=== PATIENT | female | born 1945 | race Caucasian/White ===

== ENCOUNTER 2018-10-09 18:32 | Emergency (ER) | payer MEDICARE ==
[~2018-10-09] VITALS: Ht 162.6 cm; Wt 113.4 kg
[2018-10-09 21:20] VITALS: BP 190/94
[2018-10-09] MEDS ORDERED: HYDR-3164 PO (21:22)
--- NOTE | 2018-10-09 21:23 | PHYS DOC ---
Past Medical History Past Medical History: No Pertinent History (VERÓNICA PAINTINGJENNIFER Yost APRN) Past Surgical History: Other Additional Past Surgical Histo: right leg (GARIMABLAKECARLOS Yost APRN) Alcohol Use: Occasionally Drug Use: None (GARIMABLAKECARLOS Yost APRN) Adult General Chief Complaint Chief Complaint: KNEE INJURY [facility] HPI Patient is a 73 year old female who presents with increasing pain in hr knee. She states that it has now become painful to walk on the extremity. She denies known injury. (VERÓNICA PAINTINGJENNIFER Yost APRN) Review of Systems Review of Systems Constitutional: Denies fever or chills [] Eyes: Denies change in visual acuity, redness, or eye pain [] HENT: Denies nasal congestion or sore throat [] Respiratory: Denies cough or shortness of breath [] Cardiovascular: No additional information not addressed in HPI [] GI: Denies abdominal pain, nausea, vomiting, bloody stools or diarrhea [] : Denies dysuria or hematuria [] Musculoskeletal: See HPI Integument: Denies rash or skin lesions [] Neurologic: Denies headache, focal weakness or sensory changes [] Endocrine: Denies polyuria or polydipsia [] All other systems were reviewed and found to be within normal limits, except as documented in this note. (VERÓNICA PAINTINGJENNIFER Yost APRN) Allergies Allergies Allergies Coded Allergies Type Severity Reaction Last Updated Verified No Known Drug Allergies 08/16/15 No (DEMAR NGUYEN MD) Physical Exam Physical Exam Constitutional: Well developed, well nourished, no acute distress, non-toxic appearance. [] HENT: Normocephalic, atraumatic, bilateral external ears normal, oropharynx moist, no oral exudates, nose normal. [] Eyes: PERRLA, EOMI, conjunctiva normal, no discharge. [] Neck: Normal range of motion, no tenderness, supple, no stridor. [] Cardiovascular:Heart rate regular rhythm, no murmur [] Lungs & Thorax: Bilateral breath sounds clear to auscultation [] Abdomen: Bowel sounds normal, soft, no tenderness, no masses, no pulsatile masses. [] Skin: Warm, dry, no erythema, no rash. [] Back: No tenderness, no CVA tenderness. [] Extremities: left knee tenderness, no cyanosis, no clubbing, ROM decreased due to pain, no edema. [] Neurologic: Alert and oriented X 3, normal motor function, normal sensory function, no focal deficits noted. [] Psychologic: Affect normal, judgement normal, mood normal. [] (BLAKE PAINTING APRN) EKG EKG [] (BLAKE PAINTING APRN) Radiology/Procedures Radiology/Procedures []Possible patellar fracture on x-ray. This x-ray was read by Dr. Nguyen in the ED. (BLAKE PAINTING APRN) Course & Med Decision Making Course & Med Decision Making Pertinent Labs and Imaging studies reviewed. (See chart for details) []The patient was placed in a knee immobilizer for comfort. (BLAKE PAINTING APRN) Course & Med Decision Making Staff Physician Addendum: I was working in the ER during the course of this patient's visit. I was available for consultation as needed, but I was not directly involved in the care of this patient. (DEMAR NGUYEN MD) Dragon Disclaimer Dragon Disclaimer This electronic medical record was generated, in whole or in part, using a voice recognition dictation system. (BLAKE PAINTING APRN) Departure Departure Impression: Primary Impression: Fracture, patella Disposition: 01 HOME, SELF-CARE Condition: STABLE Referrals: SHRUTI COOK (PCP) Patient Instructions: Patellar Fracture, Adult Additional Instructions: Take the pain medication as directed. Follow-up with your orthopedic surgeon for further evaluation and treatment. If worsening return to the emergency department. With a knee immobilizer for comfort. You sure at home walker to help with ambulation. Scripts Hydrocodone/Apap 5-325 (NORCO 5-325 TABLET) 1 Each Tablet 1 TAB PO PRN Q6HRS PRN for PAIN, #20 TAB 0 Refills Prov: BLAKE PAINTING APRN 10/09/18 BLAKE PAINTING APRN Oct 09, 2018 21:23 DEMAR NGUYEN MD Dec 20, 2018 18:23
--- NOTE | 2018-10-09 23:39 | RAD ---
KNEE LEFT 3V History: LEFT MEDIAL KNEE PAIN AFTER INJURY X1 WEEK AGO Comparison: None. Findings: 3 views left knee are submitted. There is moderate narrowing of the medial compartment joint space, to lesser degree of the lateral compartment. There is fairly severe narrowing of the patellofemoral joint space. There is osteophyte formation of all 3 compartments. 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 No acute fracture or dislocation or significant joint effusion is identified. Impression: 1. 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 Electronically signed by: Luis Miguel Watkins MD (10/09/2018 11:36 PM) [facility]
== END 2018-10-09 21:38 | disposition home or self-care (01) ==
LOC: ER 18:32
DX: S82.002A Unspecified fracture of left patella, initial encounter for closed fracture (principal); X50.0XXA Overexertion from strenuous movement or load, initial encounter; Y93.89 Activity, other specified; Y92.89 Other specified places as the place of occurrence of the external cause; Y99.8 Other external cause status
CPT/HCPCS: 29505; 73562; 99283-25